=== PATIENT | male | born 1975 | race Caucasian/White ===

== ENCOUNTER 2022-12-15 10:10 | Emergency (ER) | payer OTHER, SELFPAY ==
[2022-12-15 10:26] VITALS: BP 133/88; PULSE 109; RESP 16; TEMP 38.1; O2SAT 99
--- NOTE | 2022-12-15 10:26 | ED.URI ---
HPI - URI/Sore Throat General Chief Complaint: Upper Respiratory Infection Stated Complaint: Sore throat, fever, swollen lymph nodes Time Seen by Provider: 12/15/22 10:26 Source: patient Mode of arrival: ambulatory Limitations: no limitations History of Present Illness HPI Narrative: 47 yo M presents with c/o sore throat, headaches for the past several days. States that he has been traveling recently but no known exposure to strep throat. States he had some old abx at home that he took. one day he took two doses of amoxicillin and another day he took two doses of augmentin. Denies N/V/D. also reports redness to R ring finger around nail. States he has had this before related to biting his nails. normally goes away on its own after using some neosporin. has had it for several days now and now getting better. All systems reviewed and negative except as noted above. Related Data Home Medications Medication Instructions Recorded Confirmed cetirizine 10 mg tablet (Zyrtec) 10 mg PO DAILY 12/15/22 12/15/22 Allergies Allergy/AdvReac Type Severity Reaction Status Date / Time No Known Allergies Allergy Verified 12/15/22 10:24 Review of Systems Review of Systems: CONSTITUTIONAL: Denies fever, chills, or sweats. Reports fatigue past EYES: Denies visual changes, redness, or discharge. ENT: Denies rhinorrhea, congestion. Reports sore throat. Denies otalgia. CARDIOVASCULAR: Denies chest pain, palpitations, or edema. RESPIRATORY: Denies cough or dyspnea. GASTROINTESTINAL: Denies abdominal pain, nausea, vomiting, or diarrhea. GENITOURINARY: Denies dysuria or hematuria. SKIN: Denies rash or itching. MUSCULOSKELETAL: Denies back pain, joint pain, or myalgia. NEUROLOGIC: Reports headache. Denies numbness, or weakness. PSYCHIATRIC: Denies anxiety or depression. All other systems reviewed are negative, except as documented in HPI. PMFSH Comments At time of signature, agree with nursing past medical, surgical, social and family history. There is no relevant family history pertinent to the presenting complaint. Exam Narrative: GENERAL: This is a well-nourished, well-developed patient, in no apparent distress. HEAD: normocephalic, atraumatic. EYES: PERRL. Sclera clear/white. Vision is grossly intact. EARS: External ears normal, auditory canals clear and without drainage, TMs normal without perforation. Hearing grossly intact. NOSE: External nose normal with no obvious nasal discharge, nares without redness, no rhinorrhea. THROAT: Mucous membranes moist, erythema to posterior pharynx, tonsils 1+ bilaterally without exudates. NECK: Neck supple, non-tender without lymphadenopathy, masses or thyromegaly. CARDIOVASCULAR: Regular rate and rhythm without murmurs, gallops, or rubs. RESPIRATORY: Clear to auscultation. Breath sounds equal bilaterally. No wheezes, rales, or rhonchi. SKIN: warm, Dry, intact with no suspicious lesions or rash, good texture and turgor. erythema to cuticle of R ring finger without fluctuance. not appropriate for I and D. NEURO: awake, alert, and oriented to person, place and time. There were no obvious focal neurologic abnormalities. EXTREMITIES: No joint tenderness, effusion, or edema noted. Course Course Level of Care: Express Care Visit Vital Signs Vital signs: Vital Signs Temperature 38.1 C H 12/15/22 10:26 Pulse Rate 109 H 12/15/22 10:26 Respiratory Rate 16 12/15/22 10:26 Blood Pressure 133/88 12/15/22 10:26 Pulse Oximetry 99 12/15/22 10:26 Temperature 38.1 C H 12/15/22 10:26 Pulse Rate 109 H 12/15/22 10:26 Respiratory Rate 16 12/15/22 10:26 Blood Pressure 133/88 12/15/22 10:26 Pulse Oximetry 99 12/15/22 10:26 Reviewed MDM - URI/Sore Throat MDM Narrative Medical decision making narrative: will treat pt for strep throat due to symptoms. unable to do strep test due to already taking abx. Discharge Plan Discharge Clinical Impression: Strep throa
== END 2022-12-15 10:36 | disposition home or self-care (01) ==
PROVIDERS: Emergency Provider Nurse Practitioner Family; PCP Internal Medicine
DX: J02.0 Streptococcal pharyngitis (principal); L03.011 Cellulitis of right finger
CPT/HCPCS: 99213; G0463